=== PATIENT | male | born 1945 | race Caucasian/White ===

== ENCOUNTER 2021-04-05 10:34 | Outpatient (CLI) | payer OTHER | END 2021-04-05 10:37 | disposition home or self-care (01) | LOC: SONOGRAMA 10:34 | PROVIDERS: ATTEND Pathology Anatomic Pathology & Clinical Pathology | DX: E04.1 Nontoxic single thyroid nodule (principal); E07.89 Other specified disorders of thyroid ==

== ENCOUNTER 2021-11-08 07:55 | Outpatient (CLI) | payer OTHER | END 2021-11-08 07:59 | disposition home or self-care (01) | LOC: SONOGRAMA 07:55 | PROVIDERS: ATTEND Pathology Anatomic Pathology & Clinical Pathology | DX: E07.89 Other specified disorders of thyroid (principal); E04.1 Nontoxic single thyroid nodule ==